=== PATIENT | male | born 1950 | race Caucasian/White ===

== ENCOUNTER → 2017-11-18 | Outpatient (RCR) | payer MEDICARE, OTHER ==
[2017-08-20 17:43] VITALS: BP 138/72
[2017-08-20 17:46] VITALS: BP 112/67
--- NOTE | 2017-08-20 18:19 | CARDIAC REHAB PLAN OF CARE ---
Physician: Dino TOWNSEND Patient is being seen: Alfonso Jacobo Medical Diagnosis: Stent x 2, EF 30-35%, Diastolic dysfunction Date of Initial Evaluation: 2016 SHORT TERM GOALS Short Term Goals Due Date: 09/20/17 Short Term Goals: 67 year old male phase II patient comes to cardiac rehab for a second time this time because of two stents placed on 2016 and an Ejection Fraction of 30-35%, Diastolic Dysfunction. Previous health history includes STEMI with full cardiac arrest, CABG x 4, in April of 2008, and two stents placed in August of 2008. Bladder cancer, with bladder and prostate removal followed by chemo in 2013. Patient did cardiac rehab at [facility] following 2007 cardiac events. Patient will follow the cardiac rehab protocol for cardio exercise and add in weight resistance at least twice a week. Patient will also adjust diet to follow a heart healthy diet. Short Term Goals Met: Short Term Goals Not Met Due To: LONGTERM GOALS Assisted Goal Due Date: 10/20/17 Assisted Goals: USP goals are to maintain the consistency of cardio exercise at least 150 minutes of moderate level (3.0-6.0 METs) or 75 minutes of high intensity (6.0 METs or above) each week with weight resistance exercise at least twice a week. Patient will continue to eat heart healthy meals. Assisted Goals Met: Life Scientists Goals Not Met Due To: PATIENT'S GOALS Patient Goals Due Date: 09/20/17 Patient Goals: Patient would like to increase strength and endurance to improve cardiac health and overall well-being. Patient would also like to lose some weight. Patient currently is 173 pounds and his BMI healthy max weight is 146 pounds. Patient Goals Met: Patient Goals Not Met Due To: Cardiac Rehabilitation Plan of Care Comment: Cardiac rehab staff will monitor, record, and evaluate vitals, ECG, and exercise results to provide the best plan of care throughout the 36 visit phase II program. CR staff will educate and motivate the patient during visits for rehab. NELL
[2017-08-21 13:16] VITALS: BP 132/74
[2017-08-21 13:17] VITALS: BP 118/80
[2017-08-24 13:25] VITALS: BP 128/72
[2017-08-24 13:28] VITALS: BP 116/62
[2017-08-26 13:08] VITALS: BP_SYST 104; BP_SYST 116; BP_DIAS 56; BP_DIAS 68
[2017-08-28 17:38] VITALS: BP 112/70
[2017-08-28 17:39] VITALS: BP 120/70
[2017-08-31 17:15] VITALS: BP 112/74
[2017-08-31 17:16] VITALS: BP 112/78
[2017-09-02 17:36] VITALS: BP 110/72
[2017-09-02 17:37] VITALS: BP 126/80
[2017-09-04 13:13] VITALS: BP 104/64
[2017-09-04 13:14] VITALS: BP 120/70
[2017-09-07 12:42] VITALS: BP 122/68
[2017-09-07 12:43] VITALS: BP 110/68
[2017-09-09 12:49] VITALS: BP 116/68
[2017-09-09 12:50] VITALS: BP 115/66
[2017-09-11 17:10] VITALS: BP 108/64
[2017-09-11 17:11] VITALS: BP 110/62
[2017-09-14 17:03] VITALS: BP 100/64
[2017-09-14 17:04] VITALS: BP 120/60
[2017-09-16 17:55] VITALS: BP_SYST 104; BP_DIAS 68; BP_DIAS 70
[2017-09-21 13:18] VITALS: BP 128/76
[2017-09-21 13:19] VITALS: BP 104/66
[2017-09-23 13:17] VITALS: BP_SYST 112; BP_SYST 96; BP_DIAS 54; BP_DIAS 64
--- NOTE | 2017-09-24 16:29 | CARDIAC REHAB PLAN OF CARE ---
Physician: Dino TOWNSEND Patient is being seen: Alfonso Jacobo Medical Diagnosis: Stent x 2 Date of Initial Evaluation: 08/20/2017 SHORT TERM GOALS Short Term Goals Due Date: 10/24/17 Short Term Goals: 67 year old male phase II patient comes to cardiac rehab for a second time this time because of two stents placed on 2016 and an Ejection Fraction of 30-35%, Diastolic Dysfunction. Previous health history includes STEMI with full cardiac arrest, CABG x 4, in April of 2008, and two stents placed in August of 2008. Bladder cancer, with bladder and prostate removal followed by chemo in 2013. Patient did cardiac rehab at [facility] following 2007 cardiac events. Patient will follow the cardiac rehab protocol for cardio exercise and add in weight resistance at least twice a week. Patient will also adjust diet to follow a heart healthy diet. Short Term Goals Met: Patient has completing 15 visits for cardiac rehab and tolerates 20-22 minutes on the treadmill (3.5 METs) and 25-27 minutes on the recumbent bike at (3.8 METs), followed by a 6-7 pound dumbbell upper body workout. During exercise patient SPO2 levels remain in the 90's on room air and the high school vice principal shows NSR-ST without ectopy and rates up to 104. Short Term Goals Not Met Due To: VP GLOBAL GOALS Mattress And Foundation Sewer Goal Due Date: 11/24/17 Residential Goals: intermission coordinator goals continue to remain consistent in achieving at least 150 minutes of a moderate level of cardio exercise and add in weight resistance at least twice a week. Patient has increased duration and intensity of exercise. Mattress And Foundation Sewer Goals Met: Residential Goals Not Met Due To: PATIENT'S GOALS Patient Goals Due Date: 10/24/17 Patient Goals: Patient goals remain to improve cardiac and overall health with consistent exercise and diet adjustment to a heart healthy diet and also lose some weight. Patient Goals Met: Patient Goals Not Met Due To: Cardiac Rehabilitation Plan of Care Comment: Cardiac rehab staff will continue to monitor, record, and evaluate vitals, ECG, and exercise results to provide the best plan of care for the patient throughout the 36 visit phase II program. CR staff will educate and motivate the patient during visits for rehab. NELL
[2017-09-25 17:25] VITALS: BP_SYST 104; BP_SYST 110; BP_DIAS 62
[2017-09-28 17:21] VITALS: BP 104/60
[2017-09-28 17:22] VITALS: BP 108/64
[2017-10-02 13:13] VITALS: BP_SYST 102; BP_SYST 122; BP_DIAS 62; BP_DIAS 66
[2017-10-05 13:09] VITALS: BP 116/64
[2017-10-07 12:38] VITALS: BP 115/70
[2017-10-07 12:39] VITALS: BP 112/60
[2017-10-12 13:37] VITALS: BP_SYST 103; BP_SYST 92; BP_DIAS 62; BP_DIAS 64
[2017-10-14 13:05] VITALS: BP 106/62
[2017-10-14 13:07] VITALS: BP 115/62
[2017-10-21 13:08] VITALS: BP 120/68
[2017-10-21 13:09] VITALS: BP 102/60
[2017-10-23 18:13] VITALS: BP 108/64
[2017-10-23 18:14] VITALS: BP 113/64
--- NOTE | 2017-10-23 18:34 | CARDIAC REHAB PLAN OF CARE ---
Physician: Dino TOWNSEND Patient is being seen: Alfonso Jacobo Medical Diagnosis: Stent x 2 Date of Initial Evaluation: 08/20/2017 SHORT TERM GOALS Short Term Goals Due Date: 11/24/17 Short Term Goals: 67 year old male phase II patient comes to cardiac rehab for a second time this time because of two stents placed on 2016 and an Ejection Fraction of 30-35%, Diastolic Dysfunction. Previous health history includes STEMI with full cardiac arrest, CABG x 4, in April of 2008, and two stents placed in August of 2008. Bladder cancer, with bladder and prostate removal followed by chemo in 2013. Patient did cardiac rehab at [facility] following 2008 cardiac events. Patient will follow the cardiac rehab protocol for cardio exercise and add in weight resistance at least twice a week. Patient will also adjust diet to follow a heart healthy diet. Short Term Goals Met: Patient has made 24 visits for rehab and tolerates 45 minutes of moderate level cardio exercise and follows that with weight resistance exercise. During exercise SPO2 levels are maintained in the 90's on room air and the desk monitor shows a ST without ectopy and rates of 105- 120. Short Term Goals Not Met Due To: STRATEGY ANALYST GOALS Special Event Assistant Goal Due Date: 12/25/17 Detention Goals: FCI goals for the patient are to maintain that consistency of at least 150 minutes of a moderate level of cardio exercise along with weight resistance at least twice a week. Patient will also remain consistent with heart healthy foods. Special Event Assistant Goals Met: Patient has improved duration and intensity of exercise. Detention Goals Not Met Due To: PATIENT'S GOALS Patient Goals Due Date: 11/24/17 Patient Goals: Patient goals are to improve cardiac and overall health and remain active. Patient Goals Met: Patient Goals Not Met Due To: Cardiac Rehabilitation Plan of Care Comment: Cardiac rehab staff will monitor, record, and evaluate vitals, ECG, and exercise results to provide the best plan of care for the patient throughout the 36 visit phase II program. CR staff will motivate and educate the patient during visits for rehab. NELL
[2017-10-30 12:51] VITALS: BP 112/68
[2017-11-02 13:00] VITALS: BP_SYST 108; BP_SYST 116; BP_DIAS 64
[2017-11-04 13:03] VITALS: BP 128/70
[2017-11-04 13:04] VITALS: BP 118/62
[2017-11-06 18:43] VITALS: BP 104/62
[2017-11-06 18:44] VITALS: BP 106/64
[2017-11-11 17:46] VITALS: BP 100/68
[2017-11-11 17:47] VITALS: BP 120/70
[~2017-11-18] MED LIST: ACET-1966 PO; ACET-2607 PO; ASCO-246 PO; ASCO500C8 PO; ASP81 PO; ASPI-1471 PO; ASPI-879 PO; ASPI81TA94 PO; ASPIRIN PO; ATOR-1 PO; ATR80PT PO; CALC1TAB32 PO; CALC500T6 PO; CLO75 PO; COM14R INH; DOCU-416 PO; FINA5TAB67 PO; FISH OIL1 CAP PO; FLAX100042 PO; FUR40 PO; HYDR-317 PO; IRO150 PO; LIS10 PO; LIS5 PO; LISI2.5T60 PO; LISI5TAB25 PO; LOR1 PO; MAGN500C10 PO; MET50 PO; METO25TA23 PO; METO25TA91 PO; METO25TA93 PO; MULT-1287 PO; MULT-865 PO; NITR-105 PO; OMEP-137 PO; OMEP-218 PO; ONDA8TAB91 PO; ONE A DAY VITAMIN; OXYM-1 ENA; PAN40 PO; PHEN200T32 PO; SIMV-44 PO; TAMS0.4C25 PO; TICA90TA PO; VITAMINS; [UNRECOGNIZED DRUG - CODE] PO
[2017-11-18 13:12] VITALS: BP_SYST 108; BP_SYST 114; BP_DIAS 70; BP_DIAS 72
== END ==
LOC: CARD 08-20 14:56
PROVIDERS: ATTEND Internal Medicine
DX: I50.30 Unspecified diastolic (congestive) heart failure (principal); Z95.5 Presence of coronary angioplasty implant and graft; Z95.1 Presence of aortocoronary bypass graft; Z85.810 Personal history of malignant neoplasm of tongue; Z90.79 Acquired absence of other genital organ(s); Z90.6 Acquired absence of other parts of urinary tract; Z92.21 Personal history of antineoplastic chemotherapy; Z87.891 Personal history of nicotine dependence
CPT/HCPCS: 93798

== ENCOUNTER 2017-12-02 10:00 | Outpatient (RCR) | payer MEDICARE, OTHER ==
[2017-11-20 17:17] VITALS: BP 118/70
[2017-11-20 17:20] VITALS: BP 112/68
[2017-11-23 12:34] VITALS: BP 103/62
[2017-11-23 12:35] VITALS: BP 118/72
[2017-11-25 17:55] VITALS: BP 124/64
[2017-11-25 17:56] VITALS: BP 98/68
[2017-11-27 13:10] VITALS: BP_SYST 102; BP_SYST 116; BP_DIAS 66; BP_DIAS 70
[2017-11-30 13:30] VITALS: BP 116/76
[2017-11-30 13:31] VITALS: BP 104/60
[2017-12-02 11:18] VITALS: BP 108/68
[2017-12-02 11:19] VITALS: BP 104/66
== END 2017-12-02 18:00 | disposition home or self-care (01) ==
LOC: CARD 10:00
PROVIDERS: ATTEND Internal Medicine Interventional Cardiology
DX: I50.30 Unspecified diastolic (congestive) heart failure (principal); Z95.5 Presence of coronary angioplasty implant and graft; Z95.1 Presence of aortocoronary bypass graft; Z85.810 Personal history of malignant neoplasm of tongue; Z90.79 Acquired absence of other genital organ(s); Z90.6 Acquired absence of other parts of urinary tract; Z92.21 Personal history of antineoplastic chemotherapy; Z87.891 Personal history of nicotine dependence
CPT/HCPCS: 93798

== ENCOUNTER → 2018-01-12 | Outpatient (CLI) | payer MEDICARE, OTHER | LOC: LAB 12:02 | PROVIDERS: ATTEND Internal Medicine | DX: I42.9 Cardiomyopathy, unspecified (principal) | CPT/HCPCS: 81001 ==

== ENCOUNTER → 2018-02-11 | Outpatient (CLI) | payer MEDICARE, OTHER ==
[2018-02-11 13:32] LABS: PLATELET COUNT, AUTOMATED 178 K/uL (150-450)
== END ==
LOC: LAB 13:14
PROVIDERS: ATTEND Urology
DX: N18.9 Chronic kidney disease, unspecified (principal); C67.0 Malignant neoplasm of trigone of bladder
CPT/HCPCS: 36415; 82040; 82247; 82310; 82374; 82435; 82565; 82947; 84075; 84132; 84155; 84295; 84450; 84460; 84520; 85025

== ENCOUNTER 2018-05-07 15:22 | Outpatient (RCR) | payer MEDICARE, OTHER ==
[2018-05-03 10:15] VITALS: BP 111/76
[2018-05-03 10:31] LABS: PLATELET COUNT, AUTOMATED 211 K/uL (150-450)
--- NOTE | 2018-05-03 11:22 | RADIOLOGY IMAGING REPORT ---
FACILITY: [facility] PATIENT NAME: Art Quinn : 1950 MR: [id number] V: [id number] EXAM DATE: ORDERING PHYSICIAN: GERMAINE WEINSTEIN TECHNOLOGIST: Location: [facility] [place] Patient: Art Quinn : 1950 Visit/Account:[id number] Date of Sevice: 05/03/2018 CHEST PA AND LAT History: Assess for acute cardiopulmonary abnormalities FINDINGS: Comparison studies: 04/14/2017 Tubes and Lines: Interval placement of pacemaker device since the previous exam. Lungs and pleura: Well aerated. No evidence of focal consolidation or pleural effusions. Mediastinum: normal. Cardiac silhouette: Evidence of remote CABG unchanged. Cardiac silhouette is normal in size. Interv al pacemaker placement Osseous structures: Unremarkable for age . IMPRESSION: No acute cardiopulmonary pathology identified. Report Dictated By: Edin Lance MD at 05/03/2018 11:16 AM Report E-Signed By: Edin Lance MD at 05/03/2018 11:19 AM WSN:[email or web address]
[2018-05-07 15:27] VITALS: BP 107/71
[2018-05-07] MEDS ORDERED: ACET650S5 PO (15:31)
--- NOTE | 2018-05-07 18:50 | ONCOLOGY FOLLOW UP NOTE ---
EVENT DATE: May 07, 2018 DIAGNOSES 1. 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 2. Coronary artery disease. 3. Hypercholesterolemia. 4. Hypertension. 5. Gastroesophageal reflux disease. 6. Urinary tract infection. CHIEF COMPLAINT Patient is here today for follow up of his bladder cancer. ONCOLOGY HISTORY Mr. Art Quinn is a 67-year-old male. PRESENTATION Vague left abdominal discomfort. DIAGNOSTIC EVALUATION 1. Ultrasound of the abdomen done on June 16, 2014 showed left hilar nephrosis versus peripelvic cyst. His creatinine at that time was 1.8 from a baseline of 1.1. 2. CT of abdomen and pelvis done on July 04, 2014 revealed moderate left hydroureteral nephrosis with 5 cm left lateral wall bladder mass. There was no evidence of local or distant spread. STAGING WORKUP 1. Bone scan done on July 06, 2014, showed degenerative disease, but no bone metastasis. 2. Chest x-ray done on July 12, 2014, did not show any evidence of acute cardiopulmonary process. PROCEDURE 1. Partial transurethral resection of bladder tumor and indwelling left ureteral stent done July 10, 2014. 2. Radical cystoprostatectomy with creation of ileal conduit with extended bilateral lymph node dissection done on December 26, 2014. PATHOLOGY Positive for high-grade transitional cell carcinoma with smooth muscle invasion. Stage pT2. His pathology from his radical cystoprostatectomy done on December 26, 2014 came back positive for urothelial carcinoma, high-grade, with moderate invasion through the full-thickness muscularis proprius, perivesical adipose tissue and left seminal vesicles with multifocal invasion of thick nerve bundles near the ganglia. Lymphovascular invasion was also positive. Surgical margins were negative. All lymph nodes were negative for metastasis. STAGE Stage III ([id number]). TREATMENT The patient has been evaluated at [facility] with recommendation of neoadjuvant chemotherapy prior to cystectomy. 1. The patient started treated with cisplatin and gemcitabine on August 25, 2014. Patient completed 4 courses of Cisplatin and gemcitabine on November 14, 2014. HISTORY OF PRESENT ILLNESS The patient is here today for follow up of his bladder cancer. He is complaining of cough occasionally. He has generalized joint pains and he aches from arthritis. He has also tingling and numbness in the fingers sometimes. He bruises easily. PAST MEDICAL HISTORY 1. Coronary artery disease. 2. Hypertension. 3. Hypercholesterolemia. 4. GERD. 5. UTI. 6. Questionable history of renal stones in the remote past. PAST SURGICAL HISTORY 1. Cystoscopy in 1979. 2. Colonoscopy in 2007. 3. Coronary artery bypass grafting with quadruple bypass in 2007. SOCIAL HISTORY The patient is . He has two sons and one daughter. 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 He has six drinks per month. He quit tobacco forty years ago after four years of tobacco abuse. No abuse of illicit drugs. FAMILY HISTORY Sister had lupus and mother had lymphoma. CURRENT MEDICATIONS 1. Calcium carbonate and vitamin D3, one tablet twice daily. 2. Omeprazole 20 mg daily. 3. Ascorbic acid 500 mg daily. 4. Multivitamins one tablet daily. 5. Lipitor 80 mg at bedtime. ALLERGIES No known drug allergies. REVIEW OF SYSTEMS CONSTITUTIONAL: No appetite or weight change. No fever, chills or sweating. No recent infection. HEENT: Ears: No tinnitus or hearing problem. Nose: No nasal discharge or epistaxis. Throat: No sore throat or mouth ulcers. Eyes: No diplopia or visual changes. RESPIRATORY: He has dry cough. No shortness of breath. No expectoration or hemoptysis. CARDIOVASCULAR: No chest pain, orthopnea, or paroxysmal nocturnal dyspnea (PND) . No edema. No palpitations. GASTROINTESTINAL: No nausea or vomiting. No diarrhea or constipation. No change in bowel movements. No heartburn or swallowing difficulties. No abdominal pain. No jaundice. No hematemesis, melena or rectal bleeding. GENITOURINARY: No hematuria or dysuria. MUSCULOSKELETAL: He has generalized joint aches from arthritis. NEUROLOGICAL: He has occasional tingling and numbness in the fingers. No headaches or convulsions. HEMATOLOGIC/LYMPHATIC: He bruises easily. SKIN: No skin rash or lumps. PSYCHIATRIC: No anxiety or depression. PHYSICAL EXAMINATION GENERAL: Looks stable. Well-developed, well-nourished, and in no acute distress. VITAL SIGNS: Blood pressure 107/71, pulse 73 per minute, respirations 16 per minute, temperature 97.7, pulse oximetry 94% on room air. HEENT: Head: Atraumatic. No sinus tenderness to palpation. Eyes: No icterus or conjunctivitis. Mouth and throat: No oral thrush or mucositis. NECK: Supple. No cervical or supraclavicular lymphadenopathy. LUNGS: Clear to auscultation and percussion bilaterally. HEART: Regular rate and rhythm. No gallops, murmurs, clicks or rubs. ABDOMEN: Soft and lax. No tenderness. No hepatosplenomegaly. No masses. EXTREMITIES: No cyanosis, clubbing or edema. LYMPHATICS: No peripheral lymphadenopathy. NEUROLOGICAL: Conscious, alert and oriented times three. No focal motor or sensory deficits. PSYCHIATRIC: Mood and affect appear normal. SKIN: No skin rash, bruise or purpuric eruption. DIAGNOSTIC/LABORATORY STUDIES CBC showed white count 5.2, hemoglobin 11.9, hematocrit 35.5, platelets 211, 000. Chem panel totally normal except creatinine 1.6, carbon dioxide 21, AST 36. Other parameters are normal. Chest x-ray did not show any acute cardiopulmonary abnormalities. ASSESSMENT 1. Stage III (pT4 pN0, cM0) muscle invasive transitional cell carcinoma of the bladder status post transurethral resection of the bladder tumor and indwelling stent placed in the left ureter on July 10, 2014. Pathology was positive for high-grade transitional cell carcinoma with smooth muscle invasion. Patient received four cycles of cisplatin and gemcitabine between August 25, 2014 through November 14, 2014. After that the patient had radical cystoprostatectomy with creation of ileal conduit with external bilateral lymph node dissection done December 26, 2014, and pathology came back positive for urothelial carcinoma, high grade, with invasion through the full thickness of the muscularis propria, perivesical adipose tissue, left seminal vesicle with multifocal invasion of nerve bundles and nerve ganglia with lymphovascular invasion. Surgical margins were negative. All lymph nodes came back negative for metastasis. There was no indication of adjuvant chemotherapy after having his neoadjuvant chemotherapy, and the patient did very well after that. He is currently in complete remission. I am planning to see him again in six months with CBC, chem panel and a chest x-ray. His current creatinine is 1.6, which is stable. Will continue to monitor. 2. Renal insufficiency from previous cisplatin therapy. Current creatinine 1.6 , which is stable. We will continue to monitor. 3. Coronary artery disease status post two stents placed July 2017, and recently in December 2017. He had a pacemaker/defibrillator placed. He has also in the past quadruple bypass surgery. 4. Hypertension. 5. Gastroesophageal reflux disease. PLAN 1. Continue followup. 2. Patient to return in six months with CBC, chem panel and chest x-ray. 3. Patient is to contact us for any new concern or complaints. JENISED
== END 2018-05-12 14:11 | disposition home or self-care (01) ==
LOC: ONC 15:22
PROVIDERS: ATTEND Internal Medicine Hematology
DX: C67.9 Malignant neoplasm of bladder, unspecified (principal)
CPT/HCPCS: 36415; 71046; 85025; G0463; 82040; 82247; 82310; 82374; 82435; 82565; 82947; 84075; 84132; 84155; 84295; 84450; 84460; 84520; 99212

== ENCOUNTER 2018-05-26 09:00 | Outpatient (RCR) | payer MEDICARE, OTHER ==
[2018-03-01 18:10] VITALS: BP 112/70
[2018-03-01 18:13] VITALS: BP 108/80
--- NOTE | 2018-03-01 18:48 | CARDIAC REHAB PLAN OF CARE ---
Physician: Eliana Keen PA-C Patient is being seen: Alfonso Jacobo Medical Diagnosis: PM, CAD Date of Initial Evaluation: March 01, 2018 Date patient was last seen: Number of treatments: Number of cancellations/No Shows: [*] INTERVENTIONS: SHORT TERM GOALS Short Term Goals Due Date: 04/01/18 Short Term Goals: 67 year old male phase II patient is a return cardiac rehab patient.In December of 2017 patient received a pacemaker/defibrillation unit. Patients cardiac hx includes CAD, STEMI, cardiac arrest, CABG x 4, and stent x 2 all in the 2008.Stent x 2 in 2016, EF 30-35%. PMhx also includes bladder CA in 2013, and chronic anemia. Short term goals are to follow the cardiac rehab exercise protocol consistently each week achieving at least 150 minutes of a moderate level of exercise, along with weight resistance exercise at least twice a week. Patient will also adjust diet to follow a heart healthy diet. Short Term Goals Met: Short Term Goals Not Met Due To: CARE HOME GOALS Vine Fruit Farming Supervisor Goal Due Date: 05/01/18 Vine Fruit Farming Supervisor Goals: correction goals are to continue to follow the exercise protocol gradually increasing intensity and duration within THR. Patient will increase endurance, strength, and gain confidence in overall health. Vine Fruit Farming Supervisor Goals Met: Alf Goals Not Met Due To: PATIENT'S GOALS Patient Goals Due Date: 04/01/18 Patient Goals: Patient goals are to improve cardiac health, improve overall health, and extend life. Patient Goals Met: Patient Goals Not Met Due To: Cardiac Rehabilitation Plan of Care Comment: Cardiac rehab staff will monitor, record, and evaluate vitals, ECG, and exercise results to provide the best plan of care for the patient throughout the 36 visit phase II plan, CR staff will motivate and educate the patient during visits for rehab. NELL
[2018-03-03 17:20] VITALS: BP 120/72
[2018-03-03 17:22] VITALS: BP 117/64
[2018-03-05 13:14] VITALS: BP 110/70
[2018-03-05 13:15] VITALS: BP 128/78
[2018-03-08 12:47] VITALS: BP_SYST 106; BP_SYST 109; BP_DIAS 58; BP_DIAS 72
[2018-03-10 12:47] VITALS: BP 112/56
[2018-03-10 12:48] VITALS: BP 120/70
[2018-03-12 16:47] VITALS: BP 108/58
[2018-03-12 16:48] VITALS: BP 122/70
[2018-03-15 12:49] VITALS: BP 128/64
[2018-03-15 12:50] VITALS: BP 110/62
[2018-03-17 13:13] VITALS: BP 106/72
[2018-03-17 13:14] VITALS: BP 104/60
[2018-03-24 12:53] VITALS: BP 104/68
[2018-03-24 12:54] VITALS: BP 110/64
[2018-03-26 13:02] VITALS: BP_SYST 122; BP_SYST 126; BP_DIAS 60; BP_DIAS 62
[2018-03-29 13:15] VITALS: BP 110/64
[2018-03-29 13:17] VITALS: BP 114/62
[2018-03-31 13:44] VITALS: BP 110/68
[2018-03-31 13:50] VITALS: BP 108/62
--- NOTE | 2018-03-31 17:44 | CARDIAC REHAB PLAN OF CARE ---
Physician: Eliana eKen PA-C Patient is being seen: Alfonso Jacobo Medical Diagnosis: PM, CABG x 4, stent x 2 Date of Initial Evaluation: 03/01/2018 : SHORT TERM GOALS Short Term Goals Due Date: 04/30/18 Short Term Goals: 67 year old male phase II patient is a return cardiac rehab patient.In December of 2017 patient received a pacemaker/defibrillation unit. Patients cardiac hx includes CAD, STEMI, cardiac arrest, CABG x 4, and stent x 2 all in the 2008.Stent x 2 in 2016, EF 30-35%. PMhx also includes bladder CA in 2013, and chronic anemia. Short term goals are to follow the cardiac rehab exercise protocol consistently each week achieving at least 150 minutes of a moderate level of exercise, along with weight resistance exercise at least twice a week. Patient will also adjust diet to follow a heart healthy diet. Short Term Goals Met: Patient has completed 12 visits for cardiac rehab, and tolerates 45 minutes of moderate level cardio exercise with 20 minutes on the treadmill, and 25 minutes on the recumbent bike. Patient has gradually increased duration and intensity of exercise, increasing MET levels and overall volume of exercise. Short Term Goals Not Met Due To: ALF GOALS Hand Collator Goal Due Date: 05/31/18 Hand Collator Goals: terminal computer operator goals are to continue to remain consistent with exercise each week achieving 150 minutes of cardio exercise along with weight resistance exercise. Patient also needs to remain consistent with eating heart healthy foods. Fpc Goals Met: One third of the way through the phase II program the patient has shown the expected improvements and increases in exercise. Hand Collator Goals Not Met Due To: PATIENT'S GOALS Patient Goals Due Date: 04/30/18 Patient Goals: Patient remains goal oriented towards improving health with exercise and healthy foods, and would like to remain active and extend life. Patient Goals Met: Patient is motivated by the results of the first 12 visits. Patient Goals Not Met Due To: Cardiac Rehabilitation Plan of Care Comment: The cardiac rehab staff will continue to monitor, record, and evaluate vitals, ECG, and exercise results to provide the best plan of care for the patient throughout the 36 visit phase II program. CR staff will motivate and educate the patient during visits for rehab. NELL
[2018-04-02 10:48] VITALS: BP 122/76
[2018-04-02 10:49] VITALS: BP 106/70
[2018-04-05 10:37] VITALS: BP 116/62
[2018-04-05 10:38] VITALS: BP 120/70
[2018-04-07 10:48] VITALS: BP 120/60
[2018-04-07 10:49] VITALS: BP 122/70
[2018-04-12 13:46] VITALS: BP 122/68
[2018-04-12 13:47] VITALS: BP 124/70
[2018-04-16 10:38] VITALS: BP 120/66
[2018-04-16 10:39] VITALS: BP 114/66
[2018-04-19 10:22] VITALS: BP_SYST 118; BP_SYST 122; BP_DIAS 68; BP_DIAS 70
[2018-04-21 12:57] VITALS: BP 120/78
[2018-04-21 12:58] VITALS: BP 122/78
[2018-04-23 13:39] VITALS: BP 100/58
[2018-04-23 13:42] VITALS: BP 126/60
[2018-04-26 13:32] VITALS: BP 128/64
[2018-04-26 13:33] VITALS: BP 118/78
--- NOTE | 2018-04-30 17:29 | CARDIAC REHAB PLAN OF CARE ---
Physician: Eliana Keen Patient is being seen: Alfonso Jacobo Medical Diagnosis: CABG x 4, PM, Stent x 2 Date of Initial Evaluation: March 01, 2018 SHORT TERM GOALS Short Term Goals Due Date: 05/01/18 Short Term Goals: 67 year old male phase II patient is a return cardiac rehab patient.In December of 2017 patient received a pacemaker/defibrillation unit. Patients cardiac hx includes CAD, STEMI, cardiac arrest, CABG x 4, and stent x 2 all in the 2008.Stent x 2 in 2017, EF 30-35%. PMhx also includes bladder CA in 2013, and chronic anemia. Short term goals are to follow the cardiac rehab exercise protocol consistently each week achieving at least 150 minutes of a moderate level of exercise, along with weight resistance exercise at least twice a week. Patient will also adjust diet to follow a heart healthy diet. Short Term Goals Met: Patient has made 21 visits for cardiac rehab and tolerates 40-45 minutes of a moderate level of cardio exercise, followed by weight resistance exercise with 7 pound dumbbells. During exercise SPO2 levels remain in the 90's and the court recording monitor shows a paced rhythm with rates of 92-124. Short Term Goals Not Met Due To: SENIOR LIVING GOALS Detention Goal Due Date: 07/02/18 Jetting Machine Operator Goals: buttermilk drier operator goals are to remain consistent with achieving at least 150 minutes each week of a moderate level of exercise and weight resistance exercise at least twice a week. Patient will also continue to eat heart healthy meals. Jetting Machine Operator Goals Met: Patient has made nice improvement in duration and intensity of exercise and remains motivated by the exercise results. Detention Goals Not Met Due To: PATIENT'S GOALS Patient Goals Due Date: 06/01/18 Patient Goals: Patient goals are to improve cardiac and overall health. To remain active and extend his life. Patient Goals Met: Patient is happy with his progress made to this point. Patient Goals Not Met Due To: Cardiac Rehabilitation Plan of Care Comment: The cardiac rehab staff will continue to monitor, record, and evaluate vitals, ECG, and exercise results to provide the best plan of care for the patient throughout the 36 visit phase II program. CR staff will motivate and educate the patient during visits for rehab. NELL
[2018-05-03 13:08] VITALS: BP 114/64
[2018-05-03 13:09] VITALS: BP 102/60
[2018-05-05 12:55] VITALS: BP_SYST 104; BP_SYST 128; BP_DIAS 62; BP_DIAS 78
[2018-05-07 13:14] VITALS: BP_SYST 108; BP_SYST 122; BP_DIAS 70
[2018-05-10 12:53] VITALS: BP 112/66
[2018-05-10 12:54] VITALS: BP 122/68
[2018-05-14 13:11] VITALS: BP_SYST 112; BP_SYST 118; BP_DIAS 64; BP_DIAS 74
[2018-05-17 12:57] VITALS: BP 110/68
[2018-05-17 12:58] VITALS: BP 106/70
[2018-05-19 13:05] VITALS: BP 118/70
[2018-05-19 13:06] VITALS: BP 122/74
[2018-05-21 13:21] VITALS: BP 124/76
[2018-05-21 13:22] VITALS: BP 114/76
[2018-05-24 16:51] VITALS: BP 116/70
[2018-05-24 16:52] VITALS: BP 112/68
[~2018-05-26 09:00] MED LIST changes: +ACET650S5 PO
[2018-05-26 13:14] VITALS: BP 122/70
[2018-05-26 13:15] VITALS: BP 112/64
== END 2018-05-30 ==
LOC: CARD 09:00
PROVIDERS: ATTEND Physician Assistant
DX: I25.5 Ischemic cardiomyopathy (principal); I50.22 Chronic systolic (congestive) heart failure; Z95.0 Presence of cardiac pacemaker; I25.2 Old myocardial infarction; I25.10 Atherosclerotic heart disease of native coronary artery without angina pectoris; D64.9 Anemia, unspecified; Z85.51 Personal history of malignant neoplasm of bladder
CPT/HCPCS: 93798

== ENCOUNTER 2018-06-11 09:00 | Outpatient (RCR) | payer MEDICARE, OTHER ==
[2018-05-31 12:54] VITALS: BP 112/64
[2018-05-31 12:55] VITALS: BP 108/68
[2018-06-02 13:01] VITALS: BP_SYST 114; BP_SYST 118; BP_DIAS 66; BP_DIAS 70
[2018-06-04 13:12] VITALS: BP 118/60
[2018-06-04 13:19] VITALS: BP 114/64
[2018-06-07 13:13] VITALS: BP 110/62
[2018-06-11 12:50] VITALS: BP 118/64
[2018-06-11 12:51] VITALS: BP 112/66
== END 2018-06-11 18:00 | disposition home or self-care (01) ==
LOC: CARD 09:00
PROVIDERS: ATTEND Physician Assistant
DX: I25.5 Ischemic cardiomyopathy (principal); I50.22 Chronic systolic (congestive) heart failure; Z95.0 Presence of cardiac pacemaker; I25.2 Old myocardial infarction; I25.10 Atherosclerotic heart disease of native coronary artery without angina pectoris; D64.9 Anemia, unspecified; Z85.51 Personal history of malignant neoplasm of bladder
CPT/HCPCS: 93798

== ENCOUNTER → 2018-07-20 | Outpatient (CLI) | payer MEDICARE, OTHER ==
--- NOTE | 2018-07-20 14:10 | RADIOLOGY IMAGING REPORT ---
FACILITY: [facility] PATIENT NAME: Art Quinn : 1950 MR: [id number] V: [id number] EXAM DATE: ORDERING PHYSICIAN: NASREEN DOBBS TECHNOLOGIST: Location: [facility] Patient: Art Quinn : 1950 Visit/Account:[id number] Date of Sevice: 07/20/2018 ABDOMEN/PELVIS W/O CONTRAST Indication: Kidney stones COMPARISON STUDIES: None.. TECHNIQUE: Noncontrast CT lung bases to the pubic symphysis obtained. One of the following dose optimization techniques was utilized in the performance of this exam: autom ated exposure control; adjustment of the mA and/or kV according to the patient's size; or use of an i terative reconstruction technique. Specific details can be referenced in the facility's radiology CT exam operational policy. FINDINGS: Liver / gallbladder: Liver demonstrates normal attenuation. There is a gallstone. Pancreas: Pancreas is unremarkable. Spleen: Normal. Adrenal glands: Normal. Kidneys: There is no right or left renal mass or calculus. There is no hydronephrosis. Pelvis: Urinary bladder and prostate are absent. Ileal conduit is identified. Bowel: Colon is negative. Stomach is normal. Vessels: Negative Musculoskeletal / Body wall: There are no lytic or blastic bone lesions. Soft tissues are normal. Lymph node assessment: Negative Lower chest: Negative IMPRESSION: 1. Postoperative changes appear to be from a cystoprostatectomy, with ileal conduit identified. 2. No evidence of right or left kidney or ureteral calculus. 3. Cholelithiasis. Report Dictated By: Edgar Austin at 07/20/2018 2:02 PM Report E-Signed By: Edgar Austin at 07/20/2018 2:05 PM WSN:[email or web address]
== END ==
LOC: CT 01:04
PROVIDERS: ATTEND Urology
DX: K80.20 Calculus of gallbladder without cholecystitis without obstruction (principal)
CPT/HCPCS: 36415; 74176; 82607

== ENCOUNTER → 2018-07-28 | Outpatient (REF) | payer MEDICARE, OTHER | LOC: ZZSENDIN 14:15 | PROVIDERS: ATTEND Urology | DX: C67.9 Malignant neoplasm of bladder, unspecified (principal) | CPT/HCPCS: 88108 ==

== ENCOUNTER → 2019-01-21 | Outpatient (REF) | payer MEDICARE, OTHER ==
[~2019-01-21] MED LIST changes: +ATOR40TA69 PO; +DICL100G39 TOP; +FERR-53 PO
== END ==
LOC: ZZSENDIN 12:00
PROVIDERS: ATTEND Urology
DX: C67.9 Malignant neoplasm of bladder, unspecified (principal)
CPT/HCPCS: 88108

== ENCOUNTER 2019-03-04 09:16 | Outpatient (RCR) | payer MEDICARE, OTHER ==
[2018-12-22 09:29] VITALS: BP 132/69
[2018-12-22 10:05] LABS: PLATELET COUNT, AUTOMATED 206 K/uL (150-450)
--- NOTE | 2018-12-22 11:19 | RADIOLOGY IMAGING REPORT ---
FACILITY: [facility] [place] PATIENT NAME: Art Quinn : 1950 MR: [id number] V: [id number] EXAM DATE: ORDERING PHYSICIAN: GERMAINE WEINSTEIN TECHNOLOGIST: Location[place] [facility] [place] Patient: Art Quinn : 1950 Visit/Account:[id number] Date of Sevice: 12/22/2018 CHEST PA LAT History: Follow-up FINDINGS: Comparison studies: 05/03/2018 and 05/15/2015 chest x-ray Tubes and Lines: Dual lead pacemaker unchanged Lungs and pleura: Well aerated. No evidence of focal consolidation or pleural effusions. Mediastinum: There is a hazy opacity seen superior to the aortic arch but this is unchanged as far b ack as 2014. Consequently, this may represent scarring related to the CABG or possible aberrant vess el. Cardiac silhouette: Previous CABG unchanged. Cardiac silhouette normal in size. Osseous structures: Unremarkable for age . IMPRESSION: No acute cardiopulmonary pathology identified. Report Dictated By: Edin Lance MD at 12/22/2018 11:10 AM Report E-Signed By: Edin Lance MD at 12/22/2018 11:13 AM WSN:[id number]
[2018-12-24 11:26] VITALS: BP 132/75
--- NOTE | 2018-12-25 08:48 | EL-TARABILY ONCOLOGY NOTE ---
EVENT DATE: December 24, 2018 DIAGNOSES 1. 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 2. Coronary artery disease. 3. Hypercholesterolemia. 4. Hypertension. 5. Gastroesophageal reflux disease. 6. Urinary tract infection. CHIEF COMPLAINT Patient is here today for follow up of his bladder cancer. ONCOLOGY HISTORY Mr. Art Quinn is a 68-year-old male. PRESENTATION Vague left abdominal discomfort. DIAGNOSTIC EVALUATION 1. Ultrasound of the abdomen done on June 16, 2014 showed left hilar nephrosis versus peripelvic cyst. His creatinine at that time was 1.8 from a baseline of 1.1. 2. CT of abdomen and pelvis done on July 04, 2014 revealed moderate left hydroureteral nephrosis with 5 cm left lateral wall bladder mass. There was no evidence of local or distant spread. STAGING WORKUP 1. Bone scan done on July 06, 2014, showed degenerative disease, but no bone metastasis. 2. Chest x-ray done on July 12, 2014, did not show any evidence of acute cardiopulmonary process. PROCEDURE 1. Partial transurethral resection of bladder tumor and indwelling left ureteral stent done July 10, 2014. 2. Radical cystoprostatectomy with creation of ileal conduit with extended bilateral lymph node dissection done on December 26, 2014. PATHOLOGY Positive for high-grade transitional cell carcinoma with smooth muscle invasion. Stage pT2. His pathology from his radical cystoprostatectomy done on December 26, 2014 came back positive for urothelial carcinoma, high-grade, with moderate invasion through the full-thickness muscularis proprius, perivesical adipose tissue and left seminal vesicles with multifocal invasion of thick nerve bundles near the ganglia. Lymphovascular invasion was also positive. Surgical margins were negative. All lymph nodes were negative for metastasis. STAGE Stage III ([id number]). TREATMENT The patient has been evaluated at [facility] with recommendation of neoadjuvant chemotherapy prior to cystectomy. 1. The patient started treated with cisplatin and gemcitabine on August 25, 2014. Patient completed 4 courses of Cisplatin and gemcitabine on November 14, 2014. HISTORY OF PRESENT ILLNESS The patient is here today for followup of his bladder cancer. He is doing fine currently except he has some joint pain and he has easy bruising but other than that he does not have any other problems. He denies any black stools or bloody urine or bloody stools. PAST MEDICAL HISTORY 1. Coronary artery disease. 2. Hypertension. 3. Hypercholesterolemia. 4. GERD. 5. UTI. 6. Questionable history of renal stones in the remote past. PAST SURGICAL HISTORY 1. Cystoscopy in 1979. 2. Colonoscopy in 2007. 3. Coronary artery bypass grafting with quadruple bypass in 2007. SOCIAL HISTORY The patient is . He has two sons and one daughter. 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 He has six drinks per month. He quit tobacco forty years ago after four years of tobacco abuse. No abuse of illicit drugs. FAMILY HISTORY Sister had lupus and mother had lymphoma. CURRENT MEDICATIONS 1. Calcium carbonate and vitamin D3, one tablet twice daily. 2. Omeprazole 20 mg daily. 3. Ascorbic acid 500 mg daily. 4. Multivitamins one tablet daily. 5. Lipitor 80 mg at bedtime. ALLERGIES No known drug allergies. REVIEW OF SYSTEMS CONSTITUTIONAL: No appetite or weight change. No fever, chills or sweating. No recent infection. HEENT: Ears: No tinnitus or hearing problem. Nose: No nasal discharge or epistaxis. Throat: No sore throat or mouth ulcers. Eyes: No diplopia or visual changes. RESPIRATORY: He has dry cough. No shortness of breath. No expectoration or hemoptysis. CARDIOVASCULAR: No chest pain, orthopnea, or paroxysmal nocturnal dyspnea (PND). No edema. No palpitations. GASTROINTESTINAL: No nausea or vomiting. No diarrhea or constipation. No change in bowel movements. No heartburn or swallowing difficulties. No abdominal pain. No jaundice. No hematemesis, melena or rectal bleeding. GENITOURINARY: No hematuria or dysuria. MUSCULOSKELETAL: He has joint aches. NEUROLOGICAL: He has occasional tingling and numbness in the fingers. No headaches or convulsions. HEMATOLOGIC/LYMPHATIC: He bruises easily. SKIN: No skin rash or lumps. PSYCHIATRIC: No anxiety or depression. PHYSICAL EXAMINATION GENERAL: Looks stable. Well-developed, well-nourished, and in no acute distress. VITAL SIGNS: Blood pressure 132/75, pulse 76 per minute, respirations 16 per minute, temperature 96.5, pulse oximetry 96% on room air. HEENT: Head: Atraumatic. No sinus tenderness to palpation. Eyes: No icterus or conjunctivitis. Mouth and throat: No oral thrush or mucositis. NECK: Supple. No cervical or supraclavicular lymphadenopathy. LUNGS: Clear to auscultation and percussion bilaterally. HEART: Regular rate and rhythm. No gallops, murmurs, clicks or rubs. ABDOMEN: Soft and lax. No tenderness. No hepatosplenomegaly. No masses. EXTREMITIES: No cyanosis, clubbing or edema. LYMPHATICS: No peripheral lymphadenopathy. NEUROLOGICAL: Conscious, alert and oriented times three. No focal motor or sensory deficits. PSYCHIATRIC: Mood and affect appear normal. SKIN: No skin rash, bruise or purpuric eruption. DIAGNOSTIC/LABORATORY STUDIES CBC showed white count 5.7, hemoglobin 10.49, hematocrit 32.9, platelets 206,000. MCV is 76.7. Serum creatinine is 1.5. The rest of the chem panel is normal. Chest x-ray done December 22, 2018, showed no acute abnormalities. ASSESSMENT 1. 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 Pathology was positive for high-grade transitional cell carcinoma with smooth muscle invasion. Patient received four cycles of cisplatin and gemcitabine between August 25, 2014, through November 14, 2014. After that the patient had radical cystoprostatectomy with creation of ileal conduit with external bilateral lymph node dissection done December 26, 2014, and pathology came back positive for urothelial carcinoma, high grade, with invasion through the full thickness of the muscularis propria, perivesical adipose tissue, left seminal vesicle with multifocal invasion of the nerve bundles and nerve ganglia with lymphovascular invasion. Surgical margins were free. All lymph nodes came back negative for metastasis. There was no indication for adjuvant chemotherapy after having his neoadjuvant chemotherapy and the patient did very well and is currently in complete remission. I am planning to see him every six months with CBC, chem panel and a chest x-ray. His current creatinine is 1.5, which is stable. 2. Microcytic anemia. His hemoglobin currently is 10.4, MCV is 76.7. I am planning to check retic count, iron studies with ferritin, soluble transferrin receptor assay. If the patient would have iron deficiency, I am planning after that to get gastrointestinal workup. 2. Renal insufficiency from previous cisplatin therapy. Current creatinine 1.5, which is stable. We will continue to monitor. 3. Coronary artery disease, status post two stents placed July 2017 and in December 2017. He had a pacemaker/defibrillator placed. He is followed by cocoa bean roaster helper. Patient had also quadruple bypass surgery. 4. Hypertension, on treatment. 5. Gastroesophageal reflux disease. PLAN 1. Continue followup. 2. Check iron studies with ferritin. 3. Check retic count. 4. Check soluble transferrin receptor assay. 5. Patient to return in one week for further evaluation and management. 3. Patient is to contact us for any new concern or complaints. NELL
[2018-12-31 10:22] VITALS: BP 123/71
--- NOTE | 2018-12-31 11:14 | EL-TARABILY ONCOLOGY NOTE ---
EVENT DATE: December 31, 2018 DIAGNOSES 1. 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 2. Coronary artery disease. 3. Hypercholesterolemia. 4. Hypertension. 5. Gastroesophageal reflux disease. 6. Urinary tract infection. CHIEF COMPLAINT Patient is here today for follow up of his microcytic anemia. ONCOLOGY HISTORY Mr. Art Quinn is a 68-year-old male. PRESENTATION Vague left abdominal discomfort. DIAGNOSTIC EVALUATION 1. Ultrasound of the abdomen done on June 16, 2014 showed left hilar nephrosis versus peripelvic cyst. His creatinine at that time was 1.8 from a baseline of 1.1. 2. CT of abdomen and pelvis done on July 04, 2014 revealed moderate left hydroureteral nephrosis with 5 cm left lateral wall bladder mass. There was no evidence of local or distant spread. STAGING WORKUP 1. Bone scan done on July 06, 2014, showed degenerative disease, but no bone metastasis. 2. Chest x-ray done on July 12, 2014, did not show any evidence of acute cardiopulmonary process. PROCEDURE 1. Partial transurethral resection of bladder tumor and indwelling left ureteral stent done July 10, 2014. 2. Radical cystoprostatectomy with creation of ileal conduit with extended bilateral lymph node dissection done on December 26, 2014. PATHOLOGY Positive for high-grade transitional cell carcinoma with smooth muscle invasion. Stage pT2. His pathology from his radical cystoprostatectomy done on December 26, 2014 came back positive for urothelial carcinoma, high-grade, with moderate invasion through the full-thickness muscularis proprius, perivesical adipose tissue and left seminal vesicles with multifocal invasion of thick nerve bundles near the ganglia. Lymphovascular invasion was also positive. Surgical margins were negative. All lymph nodes were negative for metastasis. STAGE Stage III ([id number]). TREATMENT The patient has been evaluated at [facility] with recommendation of neoadjuvant chemotherapy prior to cystectomy. 1. The patient started treated with cisplatin and gemcitabine on August 25, 2014. Patient completed 4 courses of Cisplatin and gemcitabine on November 14, 2014. HISTORY OF PRESENT ILLNESS The patient is here today for followup of his microcytic anemia. Patient during his followup last week for his cancer was found to have microcytic anemia with hemoglobin 10.4 and MCV 76.7. He is complaining currently of generalized joint pain. He has occasional tingling and numbness in the fingers and he bruises easily. PAST MEDICAL HISTORY 1. Coronary artery disease. 2. Hypertension. 3. Hypercholesterolemia. 4. GERD. 5. UTI. 6. Questionable history of renal stones in the remote past. PAST SURGICAL HISTORY 1. Cystoscopy in 1979. 2. Colonoscopy in 2007. 3. Coronary artery bypass grafting with quadruple bypass in 2007. SOCIAL HISTORY The patient is . He has two sons and one daughter. 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 He has six drinks per month. He quit tobacco forty years ago after four years of tobacco abuse. No abuse of illicit drugs. FAMILY HISTORY Sister had lupus and mother had lymphoma. CURRENT MEDICATIONS 1. Calcium carbonate and vitamin D3, one tablet twice daily. 2. Omeprazole 20 mg daily. 3. Ascorbic acid 500 mg daily. 4. Multivitamins one tablet daily. 5. Lipitor 80 mg at bedtime. ALLERGIES No known drug allergies. REVIEW OF SYSTEMS CONSTITUTIONAL: No appetite or weight change. No fever, chills or sweating. No recent infection. HEENT: Ears: No tinnitus or hearing problem. Nose: No nasal discharge or epistaxis. Throat: No sore throat or mouth ulcers. Eyes: No diplopia or visual changes. RESPIRATORY: He has dry cough. No shortness of breath. No expectoration or hemoptysis. CARDIOVASCULAR: No chest pain, orthopnea, or paroxysmal nocturnal dyspnea (PND). No edema. No palpitations. GASTROINTESTINAL: No nausea or vomiting. No diarrhea or constipation. No change in bowel movements. No heartburn or swallowing difficulties. No abdominal pain. No jaundice. No hematemesis, melena or rectal bleeding. GENITOURINARY: No hematuria or dysuria. MUSCULOSKELETAL: Patient has generalized joint pain. NEUROLOGICAL: He has occasional numbness in his fingers. HEMATOLOGIC/LYMPHATIC: He bruises easily. SKIN: No skin rash or lumps. PSYCHIATRIC: No anxiety or depression. PHYSICAL EXAMINATION GENERAL: Looks stable. Well-developed, well-nourished, and in no acute distress. VITAL SIGNS: Blood pressure 123/71, pulse 68 per minute, respirations 16 per minute, temperature 97.2, pulse oximetry 95% on room air. HEENT: Head: Atraumatic. No sinus tenderness to palpation. Eyes: No icterus or conjunctivitis. Mouth and throat: No oral thrush or mucositis. NECK: Supple. No cervical or supraclavicular lymphadenopathy. LUNGS: Clear to auscultation and percussion bilaterally. HEART: Regular rate and rhythm. No gallops, murmurs, clicks or rubs. ABDOMEN: Soft and lax. No tenderness. No hepatosplenomegaly. No masses. EXTREMITIES: No cyanosis, clubbing or edema. LYMPHATICS: No peripheral lymphadenopathy. NEUROLOGICAL: Conscious, alert and oriented times three. No focal motor or sensory deficits. PSYCHIATRIC: Mood and affect appear normal. SKIN: No skin rash, bruise or purpuric eruption. DIAGNOSTIC/LABORATORY STUDIES CBC showed white count 5.7, hemoglobin 10.4, hematocrit 32.9, platelets 206,000. Absolute retic is 0.0638. Chem panel showed creatinine 1.5. Serum iron was 34, TIBC 424, iron saturation 8%, ferritin 9. Soluble transferrin receptor assay is high at 6.2. Urinalysis did not show microscopic hematuria. ASSESSMENT 1. 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 Pathology was positive for high-grade transitional cell carcinoma with muscle invasion. Patient received four cycles of cisplatin and gemcitabine between August 25, 2014, through November 14, 2014. After that, the patient had radical cystoprostatectomy with creation of ileal conduit with external bilateral lymph node dissection done December 26, 2014, and pathology came back positive for urothelial carcinoma, high grade, with invasion through the full thickness of the muscularis propria, perivesical adipose tissue, left seminal vesicle with multifocal invasion of nerve bundles and nerve ganglia with lymphovascular invasion. Surgical margins were free. All lymph nodes came back negative for metastasis. There was no indication of adjuvant chemotherapy after having his neoadjuvant chemotherapy and the patient did well after that and he is currently in complete remission. We are going to see him in six months with CBC, chem panel and chest x-ray at that time. Current creatinine is 1.5, which is stable. 2. Microcytic anemia, proved to be due to iron deficiency. Current hemoglobin is 10.4. Serum iron 34, TIBC 424, iron saturation 8%, ferritin is low at 9 and soluble transferrin receptor assay is high at 6.2 His urinalysis did not show microscopic hematuria or malignant cells. I am planning to refer him to a diesel engine operator but the patient said he cannot do any procedure currently because of his antiplatelet therapy for his recent heart attack by his aitchbone breaker, which he is going to finish in February this year. I am planning to treat him with ferrous sulfate 325 mg three times daily and I will bring him in two months with CBC, iron studies with ferritin and soluble transferrin receptor assay at that time and we may refer him to diesel engine operator at that time too. 2. Renal insufficiency from previous cisplatin therapy. Current creatinine 1.5, which is stable. We will continue to monitor. 3. Coronary artery disease, status post two stents placed July 2017 and December 2017. He had a pacemaker/defibrillator placed. He is followed by his aitchbone breaker. 4. Hypertension, on treatment. 5. Gastroesophageal reflux disease. PLAN 1. Ferrous sulfate 325 mg three times daily with meals. 2. Patient to return in two months with CBC, iron studies with ferritin. 3. Patient to contact us for any concerns or complaints. 4. Consider GI referral with his next visit as the patient cannot have a GI procedure because he cannot be biopsied because of the antiplatelet prescribed by his aitchbone breaker for his recent coronary artery disease. NELL
[2019-03-02 08:56] VITALS: BP 121/80
[2019-03-02 09:22] LABS: PLATELET COUNT, AUTOMATED 194 K/uL (150-450)
[2019-03-04 09:30] VITALS: BP 131/84
--- NOTE | 2019-03-04 10:37 | [facility] ONCOLOGY NOTE ---
EVENT DATE: March 04, 2019 CHIEF COMPLAINT Patient is here today for followup of his microcytic anemia. ONCOLOGY HISTORY Mr. Art Quinn is a 68-year-old male. PRESENTATION Vague left abdominal discomfort. DIAGNOSTIC EVALUATION 1. Ultrasound of the abdomen done on June 16, 2014 showed left hilar nephrosis versus peripelvic cyst. His creatinine at that time was 1.8 from a baseline of 1.1. 2. CT of abdomen and pelvis done on July 04, 2014 revealed moderate left hydroureteral nephrosis with 5 cm left lateral wall bladder mass. There was no evidence of local or distant spread. STAGING WORKUP 1. Bone scan done on July 06, 2014, showed degenerative disease, but no bone metastasis. 2. Chest x-ray done on July 12, 2014, did not show any evidence of acute cardiopulmonary process. PROCEDURE 1. Partial transurethral resection of bladder tumor and indwelling left ureteral stent done July 10, 2014. 2. Radical cystoprostatectomy with creation of ileal conduit with extended bilateral lymph node dissection done on December 26, 2014. PATHOLOGY Positive for high-grade transitional cell carcinoma with smooth muscle invasion. Stage pT2. His pathology from his radical cystoprostatectomy done on December 26, 2014 came back positive for urothelial carcinoma, high-grade, with moderate invasion through the full-thickness muscularis proprius, perivesical adipose tissue and left seminal vesicles with multifocal invasion of thick nerve bundles near the ganglia. Lymphovascular invasion was also positive. Surgical margins were negative. All lymph nodes were negative for metastasis. STAGE Stage III ([id number]). TREATMENT The patient has been evaluated at [facility] with recommendation of neoadjuvant chemotherapy prior to cystectomy. 1. The patient started treated with cisplatin and gemcitabine on August 25, 2014. Patient completed 4 courses of Cisplatin and gemcitabine on November 14, 2014. HISTORY OF PRESENT ILLNESS The patient is here today for followup of his recently diagnosed iron deficiency anemia. He is really doing fine. His energy level is better. He has some dry cough. He has cramps in his abdomen and occasional diarrhea, could be attributed to his recent use of iron supplement. He has also joint pains, especially in the back. He bruises easily. PAST MEDICAL HISTORY 1. Coronary artery disease. 2. Hypertension. 3. Hypercholesterolemia. 4. GERD. 5. UTI. 6. Questionable history of renal stones in the remote past. PAST SURGICAL HISTORY 1. Cystoscopy in 1979. 2. Colonoscopy in 2007. 3. Coronary artery bypass grafting with quadruple bypass in 2008. SOCIAL HISTORY The patient is . He has two sons and one daughter. 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 He has six drinks per month. He quit tobacco forty years ago after four years of tobacco abuse. No abuse of illicit drugs. FAMILY HISTORY Sister had lupus and mother had lymphoma. CURRENT MEDICATIONS 1. Calcium carbonate and vitamin D3, one tablet twice daily. 2. Omeprazole 20 mg daily. 3. Ascorbic acid 500 mg daily. 4. Multivitamins one tablet daily. 5. Lipitor 80 mg at bedtime. ALLERGIES No known drug allergies. REVIEW OF SYSTEMS CONSTITUTIONAL: No appetite or weight change. No fever, chills or sweating. No recent infection. HEENT: Ears: No tinnitus or hearing problem. Nose: No nasal discharge or epistaxis. Throat: No sore throat or mouth ulcers. Eyes: No diplopia or visual changes. RESPIRATORY: Patient has dry cough. CARDIOVASCULAR: No chest pain, orthopnea, or paroxysmal nocturnal dyspnea (PND). No edema. No palpitations. GASTROINTESTINAL: He has crampy abdominal pain and occasional diarrhea. GENITOURINARY: No hematuria or dysuria. MUSCULOSKELETAL: He has pain in his back. NEUROLOGICAL: He has occasional numbness in his fingers. HEMATOLOGIC/LYMPHATIC: He bruises easily. SKIN: No skin rash or lumps. PSYCHIATRIC: No anxiety or depression. PHYSICAL EXAMINATION GENERAL: Looks stable. Well-developed, well-nourished, and in no acute distress. VITAL SIGNS: Blood pressure 131/85, pulse 69 per minute, respirations 16 per minute, temperature 98.1, pulse oximetry 94% on room air. HEENT: Head: Atraumatic. No sinus tenderness to palpation. Eyes: No icterus or conjunctivitis. Mouth and throat: No oral thrush or mucositis. NECK: Supple. No cervical or supraclavicular lymphadenopathy. LUNGS: Clear to auscultation and percussion bilaterally. HEART: Regular rate and rhythm. No gallops, murmurs, clicks or rubs. ABDOMEN: Soft and lax. No tenderness. No hepatosplenomegaly. No masses. EXTREMITIES: No cyanosis, clubbing or edema. LYMPHATICS: No peripheral lymphadenopathy. NEUROLOGICAL: Conscious, alert and oriented times three. No focal motor or sensory deficits. PSYCHIATRIC: Mood and affect appear normal. SKIN: No skin rash, bruise or purpuric eruption. DIAGNOSTIC/LABORATORY STUDIES CBC showed white count 5.3, hemoglobin 13.5, hematocrit 41.1, platelets 194,000. Serum iron is 151, up from 34. TIBC is 292, down from 424. Iron saturation 51.7%, up from 8%. Ferritin is 42, up from 9. ASSESSMENT 1. 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 Pathology was positive for high-grade transitional cell carcinoma with muscle invasion. Patient received four cycles of cisplatin and gemcitabine between August 25, 2014, through November 14, 2014. After that, the patient had radical cystoprostatectomy with creation of ileal conduit with external bilateral lymph node dissection done December 26, 2014, and pathology came back positive for urothelial carcinoma, high grade, with invasion through the full thickness of the muscularis propria, perivesical adipose tissue, left seminal vesicle with multifocal invasion of nerve bundles and nerve ganglia with lymphovascular invasion. Surgical margins were free. All lymph nodes came back negative for metastasis. There was no indication of adjuvant chemotherapy after having his neoadjuvant chemotherapy and the patient did well after that and he is currently in complete remission. Patient with is next visit in four months, I am planning to check his CBC, chem panel and chest x-ray. 2. Microcytic anemia due to iron deficiency. Patient had hemoglobin initially at 10.4, started on ferrous sulfate 325 mg three times daily and his current hemoglobin is 13.5. His ferritin improved from 9 to 42 and his iron saturation improved from 8% to 51.7%. I asked the patient to decrease iron supplement to two pills a day for four months and I will see him in four months with CBC, chem panel, iron studies with ferritin and chest x-ray. Patient was not sent to the fusion juncture grinder because of his recent heart attack and currently on antiplatelet but he is going to see his corporate safety manager and most probably he would be taken off the antiplatelet and if this is the case patient was advised to notify us about that and then we will refer him to Dr. Joy for GI workup. 2. Renal insufficiency from previous cisplatin therapy. His current creatinine is 1.5, which is stable. We will continue to monitor. 3. Coronary artery disease, status post stents placed July 2017 and December 2017. He had pacemaker/defibrillator placed. He is followed by his corporate safety manager and is going to see him soon. 4. Hypertension, on treatment. 5. Gastroesophageal reflux disease. PLAN 1. Continue ferrous sulfate 325 mg two times daily for four months. 2. Patient to return in four months with CBC, iron studies with ferritin, chem panel and chest x-ray. 3. Patient to contact us for any new concerns or complaints. 4. Consider GI workup with referral to Dr. Joy if the patient would be taken off antiplatelet therapy after his cardiology appointment. NELL
== END 2019-03-21 ==
LOC: ONC 09:16
PROVIDERS: ATTEND Internal Medicine Hematology
DX: Z85.51 Personal history of malignant neoplasm of bladder (principal); Z92.21 Personal history of antineoplastic chemotherapy; D50.9 Iron deficiency anemia, unspecified; I25.10 Atherosclerotic heart disease of native coronary artery without angina pectoris; I10 Essential (primary) hypertension; K21.9 Gastro-esophageal reflux disease without esophagitis; Z95.0 Presence of cardiac pacemaker; Z87.891 Personal history of nicotine dependence
CPT/HCPCS: 36415; 71046; 81001; 82728; 83540; 83550; 84238; 85025; 85045; G0463; 82040; 82247; 82310; 82374; 82435; 82565; 82947; 84075; 84132; 84155; 84295; 84450; 84460; 84520; 99212

== ENCOUNTER → 2019-04-19 | Outpatient (CLI) | payer MEDICARE, OTHER ==
[~2019-04-19] MED LIST changes: +CLOP75TA43 PO
--- NOTE | 2019-04-19 13:20 | EKG ---
FACILITY: [facility] PATIENT NAME: VIDHI MARIE : [id number] MR: [id number] V: [id number] EXAM DATE: ORDERING PHYSICIAN: NARINDER MANLEY TECHNOLOGIST: Test Reason : Blood Pressure : / mmHG Vent. Rate : 071 BPM Atrial Rate : 071 BPM P-R Int : 104 ms QRS Dur : 162 ms QT Int : 464 ms P-R-T Axes : 000 268 100 degrees QTc Int : 504 ms AV sequential or dual chamber electronic pacemaker When compared with ECG of 12-JUL-2014 09:59, Electronic ventricular pacemaker has replaced Sinus rhythm New from previous Confirmed by WANG MCCALLUM ([id number]) on 04/19/2019 6:05:48 PM Referred By: Confirmed By:WANG MCCALLUM
== END ==
LOC: LAB 07:44
PROVIDERS: ATTEND Surgery
DX: I50.9 Heart failure, unspecified (principal); Z95.1 Presence of aortocoronary bypass graft
CPT/HCPCS: 36415; 82310; 82374; 82435; 82565; 82947; 84132; 84295; 84520; 93005

== ENCOUNTER 2019-05-13 00:30 | Day surgery (SDC) | payer MEDICARE, OTHER ==
[~2019-05-13] VITALS: Ht 162.6 cm; Wt 75.7 kg
[2019-05-13 06:55] VITALS: BP 135/77
[2019-05-13] MEDS ORDERED: PROPOFOL EMUL(*) 10MG/ML 20 ML 20 ML ONE (07:07)
[2019-05-13 08:55] VITALS: BP 103/66
--- NOTE | 2019-05-13 09:03 | Short(Outpt) Discharge Summary ---
Discharge Summary Reason for Hosp/Final Diag: (1) Encounter for screening colonoscopy Hospital Course & Plan: pt presented for colonoscopy. he tolerated the procedure well and will be discharged home when criteria met. Departure Discharge to: Home Discharge Instructions Home Meds Active Scripts Atorvastatin Calcium (ATORVASTATIN CALCIUM) 40 Mg Tablet, 1 TAB PO QDAY for 90 Days, #90 TAB 4 Refills Prov:YONI GOODMAN MD 01/04/19 Diclofenac Sodium 1% Gel (VOLTAREN 1% GEL) 100 Gm Gel..gram., 2 GM TOP BID PRN for pain for 30 Days, #1 TUBE Prov:YONI GOODMAN MD 09/27/18 Reported Medications Clopidogrel Bisulfate (PLAVIX) 75 Mg Tablet, 1 TAB PO QDAY, TAB 04/15/19 Ferrous Sulfate (FERROUS SULFATE) 325 Mg Tablet, 325 MG PO BID 12/31/18 Acetaminophen (TYLENOL) 325 Mg Tablet, 3000 MG PO DAILY, TAB 12/24/18 Oxymetazoline Hcl (AFRIN) 30 Ml [place], 2 SPR [place] PRN, SPRAY 11/19/17 Metoprolol Succinate (METOPROLOL SUCCINATE) 25 Mg Tab.er.24h, 1 TAB PO QDAY 11/19/17 Lisinopril (LISINOPRIL) 2.5 Mg Tablet, 1 TAB PO QDAY 11/19/17 Aspirin (ASPIR 81) 81 Mg Tablet.dr, 1 TAB PO HS 11/19/17 Ascorbic Acid (VITAMIN C WITH JOY HIPS) 500 Mg Tablet, 1 TAB PO DAILY 11/19/17 Omeprazole (OMEPRAZOLE) 20 Mg Tablet.dr, 1 TAB PO QDAY, TAB 06/24/17 Multivitamins (Men's Multi-Vitamin) 1 Tab Tablet, 1 TAB PO DAILY 09/27/08 Diet: Regular Activity: As Tolerated Special Instructions: repeat colonoscopy in 10 yrs. NARINDER MANLEY May 13, 2019 09:03
[2019-05-13 09:15] VITALS: BP 112/72
[2019-05-13 09:26] VITALS: BP 122/72
[2019-05-13 09:32] VITALS: BP 121/75
[2019-05-13 09:33] VITALS: BP 125/80
[2019-05-13] MEDS ORDERED: NORMOSOL R SOLN(*) 1000 ML BAG 1,000 ML IV PRN (10:45)
[2019-05-13] MEDS ORDERED: LIDOCAINE/SOD BICARB 8.4% SYR ID ONE (10:45)
== END 2019-05-13 09:50 | disposition home or self-care (01) ==
LOC: OR 00:30
PROVIDERS: ATTEND Surgery
DX: Z12.11 Encounter for screening for malignant neoplasm of colon (principal); K57.30 Diverticulosis of large intestine without perforation or abscess without bleeding
CPT/HCPCS: 00812; G0121; J2704